=== PATIENT | male | born 1995 | race Caucasian/White ===

== ENCOUNTER 2021-03-07 23:10 | Emergency (ER) | payer OTHER ==
[~2021-03-07] VITALS: Ht 165.1 cm; Wt 52.2 kg
--- NOTE | 2021-03-07 23:10 | NUR ---
PT BIB [facility], PREBOOK. TAKEN TO CHAIR
--- NOTE | 2021-03-07 23:20 | NUR ---
Dr. Javier examining patient.
[2021-03-07 23:24] VITALS: BP 114/56
[2021-03-07] MEDS ORDERED: ACETAMINOPHEN EXTRA STRENGTH 500 MG TAB PO ONE (23:45)
--- NOTE | 2021-03-08 00:34 | NUR ---
PT RETURN FROM CT
[2021-03-08 01:54] VITALS: BP 114/56
--- NOTE | 2021-03-08 01:54 | NUR ---
PATIENT BIB [facility]. PATIENT EXAMINED BY DR. ST. PATIENT MEDICALLY CLEARED AND RELEASED IN CUSTODY IN STABLE CONDITION. ORIGINAL PRE-BOOK FORM GIVEN TO OFFICER ROOSEVELT.
== END 2021-03-08 01:54 ==
LOC: MED 23:10
DX: S09.90XA Unspecified injury of head, initial encounter (principal); F10.129 Alcohol abuse with intoxication, unspecified; R55 Syncope and collapse; Z02.89 Encounter for other administrative examinations; V89.2XXA Person injured in unspecified motor-vehicle accident, traffic, initial encounter; Y93.89 Activity, other specified; Y92.89 Other specified places as the place of occurrence of the external cause; Y99.8 Other external cause status
CPT/HCPCS: 70450; 72125; 99284

== ENCOUNTER 2023-05-06 10:52 | Emergency (ER) | payer OTHER ==
[~2023-05-06] VITALS: Ht 165.1 cm; Wt 51.8 kg
[2023-05-06 11:06] VITALS: BP 142/88; PULSE 90; RESP 18; TEMP 99.2; O2SAT 98
== END 2023-05-06 11:42 | disposition home or self-care (01) ==
LOC: MED 10:52
DX: S61.412D Laceration without foreign body of left hand, subsequent encounter (principal); S61.217D Laceration without foreign body of left little finger without damage to nail, subsequent encounter; S61.011D Laceration without foreign body of right thumb without damage to nail, subsequent encounter; Z48.02 Encounter for removal of sutures; Z86.39 Personal history of other endocrine, nutritional and metabolic disease; V89.2XXD Person injured in unspecified motor-vehicle accident, traffic, subsequent encounter
CPT/HCPCS: 99281